=== PATIENT | male | born 1950 | race Caucasian/White ===

== ENCOUNTER 2020-11-18 08:19 | Emergency (ER) | payer MEDICARE, OTHER ==
--- NOTE | 2020-11-18 08:56 | EDM.PDOC ---
ED HPI GENERAL MEDICAL PROBLEM - General Chief Complaint: Headache Stated Complaint: PAIN LEFT SIDE OF HEAD / NECK Time Seen by Provider: 11/18/20 08:56 Source of Information: Reports: Patient, Family (), RN, RN Notes Reviewed History Limitations: Reports: No Limitations - History of Present Illness INITIAL COMMENTS - FREE TEXT/NARRATIVE: Pt presents to ER from home by POV with c/o severe left occipital headache and upper neck pain. Pt states that about one month ago he had gradual onset of a right occipital headache and upper neck pain without injury or any known cause. The neck pain and Rt headache was constant and moderate for a month, then this morning he woke with severe left occipital and upper neck pain, and felt unable to turn his head left of right. He can move his head up and down without nuchal rigidity. Admits to nausea from the pain, and today for the first time, the light bothers his eye slightly. Denies radiating pain, numbness, or tingling to the arms or hands. Pt rates the pain 10/10. Nothing alleviates the pain. He has taken Tylenol without relief. Movement of the head/neck aggravates the pain. Duration: Constant Location: Reports: Head, Neck Quality: Reports: Ache, Sharp, Other Severity: Severe Associated Symptoms: Reports: No Other Symptoms - Related Data Allergies Allergy/AdvReac Type Severity Reaction Status Date / Time Penicillins Allergy Hives Verified 11/18/20 08:57 Home Meds: Home Meds Cyanocobalamin (Vitamin B-12) [Cyanocobalamin Injection] 1,000 mcg SUBCUT ASDIRECTED 11/18/20 [History] Furosemide 40 mg PO 11/18/20 [History] Losartan Potassium 100 mg PO 11/18/20 [History] Metoprolol Succinate [Toprol XL 100mg] 100 mg PO DAILY 11/18/20 [History] amLODIPine Besylate [Amlodipine Besylate] 10 mg PO 11/18/20 [History] atorvaSTATin [Lipitor] 10 mg PO 11/18/20 [History] Past Medical History Cardiovascular History: Reports: High Cholesterol, Hypertension Endocrine/Metabolic History: Reports: Obesity/BMI 30+ Social & Family History - Family History Family Medical History: No Pertinent Family History - Living Situation & Occupation Living situation: Reports: , with Spouse Occupation: Other ([employer]) ED ROS GENERAL - Review of Systems Review Of Systems: Comprehensive ROS is negative, except as noted in HPI. - Physical Exam Exam: See Below Exam Limited By: No Limitations General Appearance: Alert, No Apparent Distress, Obese, Other (Uncomfortable appearing) Eye Exam: Bilateral Eye: EOMI, Normal Inspection, PERRL Ears: Normal External Exam, Normal Canal, Hearing Grossly Normal, Normal TMs Nose: Normal Inspection, Normal Mucosa, No Blood Throat/Mouth: Normal Inspection, Normal Lips, Normal Teeth, Normal Gums, Normal Oropharynx, Normal Voice, No Airway Compromise Head Exam: Atraumatic, Normocephalic, Scalp Tenderness (Mildly tender at the left occipital scalp) Neck: Limited Range of Motion (Rotation left and right limited), Other (No nuchal rigidity). No: Carotid Bruit, Lymphadenopathy (L), Lymphadenopathy (R), Tender Lateral (Left superior), Tender Midline Respiratory/Chest: No Respiratory Distress, Lungs Clear, Chest Non-Tender Cardiovascular: Normal Peripheral Pulses, Regular Rate, Rhythm Neuro Exam (Abbreviated): Alert, Oriented, CN II-XII Intact, Normal Cognition, Normal Gait, No Motor/Sensory Deficits Back Exam: Normal Inspection, Full Range of Motion. No: Vertebral Tenderness Extremities: Normal Inspection, Normal Range of Motion, Non-Tender Psychiatric: Normal Affect, Normal Mood Skin Exam: Warm, Dry, Intact, Normal Color, No Rash Course - Vital Signs Last Recorded V/S: Last Vital Signs Temp 98.2 F 11/18/20 09:18 Pulse 67 11/18/20 09:18 Resp 12 11/18/20 09:18 BP 159/84 H 11/18/20 09:18 Pulse Ox 98 11/18/20 09:18 - Orders/Labs/Meds Orders: Active Orders 24 hr Category Date Time Status Peripheral IV Care [RC] . DIRECTED Care 11/18/20 09:02 Active Sodium Chloride 0.9% [Saline Flush] Med 11/18/20 09:02 Active 10 ml FLUSH ASDIRECTED PRN Peripheral IV Insertion Adult [OM.PC] Stat Oth 11/18/20 09:01 Ordered Medication Orders Sodium Chloride (Sodium Chloride 0.9% 10 Ml Syringe) 10 ml FLUSH ASDIRECTED PRN PRN Reason: Keep Vein Open Last Admin: 11/18/20 09:31 Dose: 10 ml Documented by: VICKIE Labs: Laboratory Tests 11/18/20 11/18/20 Range/Units 09:08 09:08 WBC 8.4 (5.0-10.0) 10^3/uL RBC 5.16 (4.6-6.2) 10^6/uL Hgb 15.5 (14.0-18.0) g/dL Hct 46.1 (40.0-54.0) % MCV 89.3 (80-100) fL MCH 30.0 (27.0-34.0) pg MCHC 33.6 (33.0-35.0) g/dL Plt Count 195 (150-450) 10^3/uL Neut % (Auto) 70.1 (42.2-75.2) % Lymph % (Auto) 21.2 (20.5-50.1) % Wise % (Auto) 6.9 (2-8) % Eos % (Auto) 1.3 (1.0-3.0) % Baso % (Auto) 0.5 (0.0-1.0) % Sodium 141 (136-145) mmol/L Potassium 3.5 (3.5-5.1) mmol/L Chloride 103 (98-107) mmol/L Carbon Dioxide 27 (21-32) mmol/L Anion Gap 14.5 H (7-13) mEq/L BUN 13 (7-18) mg/dL Creatinine 0.95 (0.70-1.30) mg/dL Est Cr Clr Drug Dosing TNP Estimated GFR (MDRD) > 60 BUN/Creatinine Ratio 13.7 (No establ ref range) Glucose 192 H (70-99) mg/dL Calcium 8.6 (8.5-10.1) mg/dL Total Bilirubin 0.7 (0.2-1.0) mg/dL AST 19 (15-37) U/L ALT 36 (16-63) U/L Alkaline Phosphatase 56 (46-116) U/L C-Reactive Protein 0.5 (0.0-0.9) mg/dL Total Protein 6.8 (6.4-8.2) g/dL Albumin 3.2 L (3.4-5.0) g/dL Globulin 3.6 Albumin/Globulin Ratio 0.89 Meds: Medications Generic Name Dose Route Start Last Admin Trade Name Freq PRN Reason Stop Dose Admin Sodium Chloride 10 ml 06/01/21 09:02 11/18/20 09:31 Sodium Chloride 0.9% 10 Ml Syringe FLUSH 10 ml ASDIRECTED PRN Administration Keep Vein Open Discontinued Medications Generic Name Dose Route Start Last Admin Trade Name Carmela PRN Reason Stop Dose Admin Hydromorphone HCl 1 mg 11/18/20 09:02 11/18/20 09:30 Hydromorphone 1 Mg/Ml Syringe IVPUSH 11/18/20 09:03 1 mg ONETIME ONE Administration Ondansetron HCl 4 mg 11/18/20 09:02 11/18/20 09:28 Ondansetron 4 Mg/2 Ml Sdv IV 11/18/20 09:03 4 mg ONETIME ONE Administration - Radiology Interpretation Free Text/Narrative:: [facility] Final Radiology Report with Addendum Call: [phone] assistance Online chat: [email or web address] Name: ADRIEN ROLON Age: 70Years M Date: 11/18/2020 SSN: -- : [id number] Study: CT HEAD WO CONT Requesting Physician: TERA LANDEROS Images: 155 Addl Studies: Provided Clinical History: severe upper neck pain, occipital headache Contrast: Without Contrast Medium: Contrast Amount: Contrast Method: Page 1 of 2 Addendum created by Abdon Nath MD on 11/18/2020 9:33 AM Central Time ([place] & [place]): Correction: The impression should reflect that there is "mild nonobstructing LEFT maxillary sinus disease." Initial Report created on 11/18/2020 9:30 AM Central Time ([place] & [place]): PROCEDURE INFORMATION: Exam: CT Head Without Contrast Exam date and time: 11/18/2020 9:21 AM Age: 70 years old Clinical indication: Pain; Headache; Migraine; Aura effect not specified; Additional info: Severe upper neck pain, occipital headache TECHNIQUE: Imaging protocol: Computed tomography of the head without contrast. Radiation optimization: All CT scans at this facility use at least one of these dose optimization techniques: automated exposure control; mA and/or kV adjustment per patient size (includes targeted exams where dose is matched to clinical indication); or iterative reconstruction. COMPARISON: No relevant prior studies available. FINDINGS: Limitations: None. Brain: Symmetric bifrontal brain volume loss without focal encephalomalacia. There are no transcortical defects and no mass, intracranial hemorrhage or brain edema. Cerebral ventricles: Normal. Paranasal sinuses: Mild nonobstructing inferior left maxillary sinus mucosal thickening. No solid masses or fluid levels. Mastoid air cells: Normal. ADRIEN ROLON | Final Radiology Report CONFIDENTIALITY STATEMENT This report is intended only for use by the referring physician, and only in accordance with law. If you received this in error, call [phone]. Page 2 of 2 Vasculature: Mild bilateral carotid atherosclerosis. Bones/joints: Normal. Soft tissues: Unremarkable. IMPRESSION: 1. No acute intracranial abnormality or suspicious finding. 2. Incidental findings include atherosclerosis, nonspecific bifrontal brain volume loss without temporal brain volume loss, mild nonobstructing right maxillary sinus disease and mild carotid atherosclerosis. Thank you for allowing us to participate in the care of your patient. Dictated and Authenticated by: Abdon Nath MD 11/18/2020 9:30 AM Central Time ([place] & [place]) [facility] Final Radiology Report Call: [phone] assistance Online chat: [email or web address] Name: ADRIEN ROLON Age: 70Years M Date: 11/18/2020 SSN: -- : 1950 Study: CT CERVICAL SPINE WO CONT Requesting Physician: TERA LANDEROS Images: [id number] Addl Studies: Provided Clinical History: severe upper neck pain, occipital headache Contrast: Without Contrast Medium: Contrast Amount: Contrast Method: Page 1 of 2 PROCEDURE INFORMATION: Exam: CT Cervical Spine Without Contrast Exam date and time: 11/18/2020 9:21 AM Age: 70 years old Clinical indication: Neck pain; Additional info: Severe upper neck pain, occipital headache TECHNIQUE: Imaging protocol: Computed tomography images of the cervical spine without contrast. Radiation optimization: All CT scans at this facility use at least one of these dose optimization techniques: automated exposure control; mA and/or kV adjustment per patient size (includes targeted exams where dose is matched to clinical indication); or iterative reconstruction. COMPARISON: No relevant prior studies available. FINDINGS: Bones/joints: Straightened cervical alignment and with 2 mm anterior degenerative subluxations of C2 upon C3 and C3 upon C4. All bones are intact. There is diffuse disc space narrowing and anterior vertebral spurring which is greatest at C5/6, next most prominent at C4/5 and C6/7. Discs/Spinal canal/Neural foramina: C2/3: No stenosis. C3/4: Midline disc protrusion measuring about 3.5 mm AP and indenting the ventral thecal sac. The central canal diameter at this level is 12.5 mm. Mild right neural foramen narrowing secondary to disc space loss and uncovertebral spurring. C4/5: No disc protrusion or suspicious stenosis. C5/6: Broad-based posterior disc osteophyte complex with questionable midline disc extrusion spanning up to 9 mm tall. The AP dimension of the central canal is approximately 9 mm at this level. but measuring no more than 2 mm AP. Uncovertebral and facet spurring causes mild to moderate bilateral neural foramen narrowing. C6/7: No central stenosis or disc protrusion. Mild bilateral neural foramen narrowing. C7/T1: No disc protrusion or stenosis. PABLOLAKIA ADRIEN | Final Radiology Report CONFIDENTIALITY STATEMENT This report is intended only for use by the referring physician, and only in accordance with law. If you received this in error, call [phone]. Page 2 of 2 Epidural space: Normal. Prevertebral Space: Normal. Sinuses: Mild, nonobstructing left maxillary sinus mucosal thickening. No fluid level. Lymph nodes: No enlarged lymph nodes. Lungs: Lung apices are normal. Soft tissues: Scattered calcifications in the ligamentum nuchae. IMPRESSION: 1. No acute fracture. 2. Diffuse cervical spondylosis with small, probably chronic disc protrusions and central C3/4 and C5/6. 3. Central canal stenosis is greatest at C5/6, 9 mm AP. 4. Neural foramen narrowing is greatest at C5/6. Thank you for allowing us to participate in the care of your patient. Dictated and Authenticated by: Abdon Nath MD 11/18/2020 9:41 AM Central Time ([place] & [place]) Departure - Departure Time of Disposition: 09:45 Disposition: Home, Self-Care 01 Condition: Fair Clinical Impression: Occipital headache, Cervical spinal stenosis, Cervical disc disease, Spondylosis of cervical spine, Right maxillary sinusitis - Discharge Information *PRESCRIPTION DRUG MONITORING PROGRAM REVIEWED*: No *COPY OF PRESCRIPTION DRUG MONITORING REPORT IN PATIENT FELIX: No Instructions: Cervicogenic Headache, Spinal Stenosis Forms: ED Department Discharge Additional Instructions: Rx: Cyclobenzaprine 10mg *Do not drive or work while taking this medication. Rx: Diclofenac ER 75mg Follow up in clinic with your primary doctor for recheck, and consideration of referral to a spinal specialist. Sepsis Event Note (ED) - Focused Exam Vital Signs: Vital Signs Temp Pulse Resp BP Pulse Ox 11/18/20 09:18 98.2 F 67 12 159/84 H 98 - My Orders Last 24 Hours: My Active Orders 11/18/20 09:01 Peripheral IV Insertion Adult [OM.PC] Stat 11/18/20 09:02 Peripheral IV Care [RC] . DIRECTED Sodium Chloride 0.9% [Saline Flush] 10 ml FLUSH ASDIRECTED PRN - Assessment/Plan Last 24 Hours: My Active Orders 11/18/20 09:01 Peripheral IV Insertion Adult [OM.PC] Stat 11/18/20 09:02 Peripheral IV Care [RC] . DIRECTED Sodium Chloride 0.9% [Saline Flush] 10 ml FLUSH ASDIRECTED PRN
[2020-11-18] MEDS ORDERED: Ondansetron 4 MG/2 ML SDV IV ONE (09:02)
[2020-11-18] MEDS ORDERED: Sodium Chloride 0.9% 10 ML Syringe FLUSH PRN (09:02)
[2020-11-18] MEDS ORDERED: HYDROmorphone 1 MG/ML Syringe IVPUSH ONE (09:02)
--- NOTE | 2020-11-18 09:31 | CT ---
PROCEDURE INFORMATION: Exam: CT Head Without Contrast Exam date and time: 11/18/2020 9:21 AM Age: 70 years old Clinical indication: Pain; Headache; Migraine; Aura effect not specified; Additional info: Severe upper neck pain, occipital headache TECHNIQUE: Imaging protocol: Computed tomography of the head without contrast. Radiation optimization: All CT scans at this facility use at least one of these dose optimization techniques: automated exposure control; mA and/or kV adjustment per patient size (includes targeted exams where dose is matched to clinical indication); or iterative reconstruction. COMPARISON: No relevant prior studies available. FINDINGS: Limitations: None. Brain: Symmetric bifrontal brain volume loss without focal encephalomalacia. There are no transcortical defects and no mass, intracranial hemorrhage or brain edema. Cerebral ventricles: Normal. Paranasal sinuses: Mild nonobstructing inferior left maxillary sinus mucosal thickening. No solid masses or fluid levels. Mastoid air cells: Normal. Vasculature: Mild bilateral carotid atherosclerosis. Bones/joints: Normal. Soft tissues: Unremarkable. IMPRESSION: 1. No acute intracranial abnormality or suspicious finding. 2. Incidental findings include atherosclerosis, nonspecific bifrontal brain volume loss without temporal brain volume loss, mild nonobstructing right maxillary sinus disease and mild carotid atherosclerosis.
[2020-11-18 09:35] LABS: ANION GAP 14.5 mEq/L (7-13); CHLORIDE,CL 103 mmol/L (98-107); SODIUM,NA 141 mmol/L (136-145)
--- NOTE | 2020-11-18 09:41 | CT ---
PROCEDURE INFORMATION: Exam: CT Cervical Spine Without Contrast Exam date and time: 11/18/2020 9:21 AM Age: 70 years old Clinical indication: Neck pain; Additional info: Severe upper neck pain, occipital headache TECHNIQUE: Imaging protocol: Computed tomography images of the cervical spine without contrast. Radiation optimization: All CT scans at this facility use at least one of these dose optimization techniques: automated exposure control; mA and/or kV adjustment per patient size (includes targeted exams where dose is matched to clinical indication); or iterative reconstruction. COMPARISON: No relevant prior studies available. FINDINGS: Bones/joints: Straightened cervical alignment and with 2 mm anterior degenerative subluxations of C2 upon C3 and C3 upon C4. All bones are intact. There is diffuse disc space narrowing and anterior vertebral spurring which is greatest at C5/6, next most prominent at C4/5 and C6/7. Discs/Spinal canal/Neural foramina: C2/3: No stenosis. C3/4: Midline disc protrusion measuring about 3.5 mm AP and indenting the ventral thecal sac. The central canal diameter at this level is 12.5 mm. Mild right neural foramen narrowing secondary to disc space loss and uncovertebral spurring. C4/5: No disc protrusion or suspicious stenosis. C5/6: Broad-based posterior disc osteophyte complex with questionable midline disc extrusion spanning up to 9 mm tall. The AP dimension of the central canal is approximately 9 mm at this level. but measuring no more than 2 mm AP. Uncovertebral and facet spurring causes mild to moderate bilateral neural foramen narrowing. C6/7: No central stenosis or disc protrusion. Mild bilateral neural foramen narrowing. C7/T1: No disc protrusion or stenosis. Epidural space: Normal. Prevertebral Space: Normal. Sinuses: Mild, nonobstructing left maxillary sinus mucosal thickening. No fluid level. Lymph nodes: No enlarged lymph nodes. Lungs: Lung apices are normal. Soft tissues: Scattered calcifications in the ligamentum nuchae. IMPRESSION: 1. No acute fracture. 2. Diffuse cervical spondylosis with small, probably chronic disc protrusions and central C3/4 and C5/6. 3. Central canal stenosis is greatest at C5/6, 9 mm AP. 4. Neural foramen narrowing is greatest at C5/6.
== END 2020-11-18 10:11 | disposition home or self-care (01) ==
LOC: DL.ED 08:19
DX: M47.812 Spondylosis without myelopathy or radiculopathy, cervical region (principal); M48.02 Spinal stenosis, cervical region; R51.9 Headache, unspecified; E78.00 Pure hypercholesterolemia, unspecified; I10 Essential (primary) hypertension; E66.9 Obesity, unspecified; Z88.0 Allergy status to penicillin; Z79.899 Other long term (current) drug therapy
CPT/HCPCS: 36415; 70450; 72125; 80053; 85025; 86140; 96374; 96375; 99284; 99284-25; J1170; J2405

== ENCOUNTER 2023-01-24 09:08 | Inpatient (IN) | payer MEDICARE, OTHER ==
[2023-01-24] MEDS ORDERED: Furosemide 100 MG/10 ML SDV IVPUSH ONE (09:25)
[2023-01-24] MEDS: Sodium Chloride 0.9% 10 ML Syringe FLUSH PRN (09:31)
[2023-01-24 09:32] LABS: BASOPHILS PERCENT AUTO 0.3 % (0.0-1.0); HEMATOCRIT 38.5 % (40.0-54.0); HEMOGLOBIN 12.8 g/dL (14.0-18.0); LYMPHOCYTES PERCENT AUTO 10.3 % (20.5-50.1); MEAN CORPUSCULAR HEMOGLOBIN 28.6 pg (27.0-34.0); MEAN CORPUSCULAR HGB CONC 33.2 g/dL (33.0-35.0); MEAN CORPUSCULAR VOLUME 85.9 fL (80-100); MONOCYTES PERCENT AUTO 8.6 % (2-8); NEUTROPHILS PERCENT AUTO 80.8 % (42.2-75.2); PLATELET COUNT,PLT 224 10^3/uL (150-450); RED BLOOD CELL COUNT 4.48 10^6/uL (4.6-6.2)
[2023-01-24 09:52] LABS: B-TYPE NATRIURETIC PEPTIDE,BNP 697 pg/ml (0-100)
[2023-01-24] MEDS ORDERED: Azithromycin 500 MG in Sodium Chloride 0.9% 250 ML IV ONE (09:55)
[2023-01-24] MEDS ORDERED: cefTRIAXone 2 GM Vial IVPUSH ONE (09:55)
[2023-01-24 09:57] LABS: A/G RATIO 0.8; ALANINE AMINOTRANSFERASE,ALT 19 U/L (16-63); ALBUMIN 3.4 g/dL (3.4-5.0); ALKALINE PHOSPHATASE 63 U/L (46-116); ANION GAP 17.3 mEq/L (7-13); ASPARTATE AMNIOTRANSFERASE,AST 14 U/L (15-37); BILIRUBIN TOTAL 1.9 mg/dL (0.2-1.0); BLOOD UREA NITROGEN,BUN 17 mg/dL (7-18); CALCIUM 9.1 mg/dL (8.5-10.1); CARBON DIOXIDE,CO2 23 mmol/L (21-32); CHLORIDE,CL 103 mmol/L (98-107); CREATININE 1.13 mg/dL (0.70-1.30); EST CRCL DRUG DOSING (CG) 73.61 mL/min; GLUCOSE RANDOM 159 mg/dL (70-99); POTASSIUM,K 3.3 mmol/L (3.5-5.1); PROTEIN TOTAL,TP 7.6 g/dL (6.4-8.2); SODIUM,NA 140 mmol/L (136-145)
[2023-01-24 09:59] LABS: LACTIC ACID 2.3 mmol/L (0.4-2.0)
[2023-01-24 10:00] LABS: ESTIMATED GFR 69 mL/min (>=60)
[2023-01-24 10:05] LABS: APPEARANCE,URINE CLEAR (CLEAR); BILIRUBIN,URINE NEGATIVE (NEGATIVE); COLOR,URINE YELLOW (YELLOW); GLUCOSE,URINE NEGATIVE (NEGATIVE); KETONES,URINE NEGATIVE (NEGATIVE); LEUKOCYTE ESTERASE,URINE NEGATIVE (NEGATIVE); NITRITE,URINE NEGATIVE (NEGATIVE); OCCULT BLOOD,URINE SMALL (NEGATIVE); PROTEIN,URINE 100 (NEGATIVE); UROBILINOGEN,URINE 0.2 mg/dL (0.2-1.0)
[2023-01-24] MEDS ORDERED: Potassium Chloride 10% 20 MEQ/15 ML Soln 15 ML UD Cup ONE (10:13)
[2023-01-24] MEDS: Potassium Chloride 10% 20 MEQ/15 ML Soln 15 ML UD Cup PO ONE (10:14)
[2023-01-24 10:16] LABS: BACTERIA,URINE RARE /HPF (0-FEW/HPF); EPITHELIAL CELLS,URINE RARE /HPF (NOT SEEN); HYALINE CASTS,URINE RARE; RBC,URINE 0-5 /HPF (0-5); WBC,URINE 0-5 /HPF (0-5/HPF)
[2023-01-24] MEDS ORDERED: Ondansetron 4 MG/2 ML SDV IVPUSH PRN (11:07)
[2023-01-24] MEDS ORDERED: Morphine 2 MG/ML SYRINGE IVPUSH PRN (11:07)
[2023-01-24] MEDS ORDERED: Albuterol/Ipratropium 3.0-0.5 MG/3 ML Neb Soln NEB PRN (11:07)
[2023-01-24] MEDS ORDERED: 50% Dextrose in Water 50 ML Syringe IVPUSH PRN (11:17)
[2023-01-24] MEDS ORDERED: Insulin Lispro 100 Units/ML 3 ML Vial SUBCUT ONE (11:17)
[2023-01-24] MEDS ORDERED: Glucagon,Human Recombinant 1 MG Vial IM PRN (11:17)
[2023-01-24] MEDS ORDERED: LORazepam 2 MG/ML SDV IVPUSH PRN (11:18)
[2023-01-24] MEDS ORDERED: Melatonin 3 MG Tab PO PRN ×2 (11:19→11:44)
[2023-01-24 11:36] LABS: INR 1.2 (0.9-1.2); PROTHROMBIN TIME 12.7 SEC (9.0-12.0)
[2023-01-24] MEDS ORDERED: Furosemide 20 MG Tab PO PRN (13:29)
[2023-01-24] MEDS: Apixaban 5 MG Tab PO SCH ×2 (15:28→20:27)
[2023-01-24] MEDS: atorvaSTATin 10 MG Tab PO SCH (15:29)
[2023-01-24] MEDS: Aspirin 81 MG Tab.EC PO SCH (16:20)
[2023-01-24] MEDS: amLODIPine 5 MG Tab PO SCH (16:20)
[2023-01-24] MEDS: Metoprolol Succinate 50 MG Tab.ER PO SCH (20:27)
[2023-01-24] MEDS: Acetaminophen 325 MG Tab PO PRN (20:27)
[2023-01-25 06:13] LABS: HEMOGLOBIN A1C 6.1 % (<5.7)
[2023-01-25 06:38] LABS: CHOLESTEROL HDL 47 mg/dL (40-59); CHOLESTEROL LDL CALCULATED 53 mg/dL (0-100); CHOLESTEROL TOTAL 108 mg/dL (0-199); TRIGLYCERIDES 42 mg/dL (0-149)
[2023-01-25] MEDS: Azithromycin 500 MG in Sodium Chloride 0.9% 250 ML IV SCH (08:41)
[2023-01-25] MEDS: Acetaminophen 325 MG Tab PO PRN ×3 (08:50→22:38)
[2023-01-25] MEDS: atorvaSTATin 10 MG Tab PO SCH (08:52)
[2023-01-25] MEDS: Ferrous Sulfate 325 MG Tab PO SCH (08:52)
[2023-01-25] MEDS: Apixaban 5 MG Tab PO SCH ×2 (08:52→20:21)
[2023-01-25] MEDS: Aspirin 81 MG Tab.EC PO SCH (08:52)
[2023-01-25] MEDS: amLODIPine 5 MG Tab PO SCH (08:53)
[2023-01-25] MEDS ORDERED: cefTRIAXone 2 GM Vial IVPUSH SCH ×2 (09:00)
[2023-01-25] MEDS ORDERED: Enoxaparin 40 MG/0.4 ML Syringe SUBCUT SCH ×2 (09:00)
[2023-01-25] MEDS ORDERED: Azithromycin 500 MG in Sodium Chloride 0.9% 250 ML IV SCH (09:00)
[2023-01-25] MEDS ORDERED: amLODIPine 5 MG Tab PO ONE (09:53)
[2023-01-25] MEDS: Potassium Chloride 10% 20 MEQ/15 ML Soln 15 ML UD Cup PO ONE (10:24)
[2023-01-25 10:33] LABS: MAGNESIUM 1.9 mg/dL (1.8-2.4)
[2023-01-25] MEDS: oxyCODONE 5 MG Tab PO PRN ×2 (16:54→23:28)
[2023-01-25] MEDS: hydrALAZINE 20 MG/ML SDV IVPUSH PRN ×2 (16:55→22:45)
[2023-01-25] MEDS: Metoprolol Succinate 50 MG Tab.ER PO SCH (20:20)
[2023-01-25] MEDS: Sodium Chloride 0.9% 10 ML Syringe FLUSH PRN ×3 (20:23→22:51)
[2023-01-26] MEDS: hydrALAZINE 20 MG/ML SDV IVPUSH PRN ×2 (04:35→20:00)
[2023-01-26] MEDS: oxyCODONE 5 MG Tab PO PRN ×2 (05:58→21:03)
[2023-01-26 06:23] LABS: BASOPHILS PERCENT AUTO 0.4 % (0.0-1.0); EOSINOPHILS PERCENT AUTO 0.7 % (1.0-3.0); HEMATOCRIT 41.6 % (40.0-54.0); LYMPHOCYTES PERCENT AUTO 12.8 % (20.5-50.1); MEAN CORPUSCULAR HEMOGLOBIN 27.4 pg (27.0-34.0); MEAN CORPUSCULAR HGB CONC 31.3 g/dL (33.0-35.0); MEAN CORPUSCULAR VOLUME 87.6 fL (80-100); MONOCYTES PERCENT AUTO 9.2 % (2-8); NEUTROPHILS PERCENT AUTO 76.9 % (42.2-75.2); PLATELET COUNT,PLT 261 10^3/uL (150-450); RED BLOOD CELL COUNT 4.75 10^6/uL (4.6-6.2); WHITE BLOOD CELL COUNT,WBC 13.5 10^3/uL (5.0-10.0)
[2023-01-26 06:44] LABS: ANION GAP 13.2 mEq/L (7-13); BILIRUBIN TOTAL 1.1 mg/dL (0.2-1.0); BUN/CREATININE RATIO 19.6 (No establ ref range); CALCIUM 9.4 mg/dL (8.5-10.1); CREATININE 1.07 mg/dL (0.70-1.30); EST CRCL DRUG DOSING (CG) 77.74 mL/min; POTASSIUM,K 3.2 mmol/L (3.5-5.1); PROTEIN TOTAL,TP 7.8 g/dL (6.4-8.2)
[2023-01-26 06:46] LABS: A/G RATIO 0.63
[2023-01-26] MEDS: Acetaminophen 325 MG Tab PO PRN ×3 (08:45→19:32)
[2023-01-26] MEDS: atorvaSTATin 10 MG Tab PO SCH (08:47)
[2023-01-26] MEDS: Ferrous Sulfate 325 MG Tab PO SCH (08:47)
[2023-01-26] MEDS: Aspirin 81 MG Tab.EC PO SCH (08:48)
[2023-01-26] MEDS: Apixaban 5 MG Tab PO SCH ×2 (08:49→20:58)
[2023-01-26] MEDS: amLODIPine 5 MG Tab PO SCH (08:49)
[2023-01-26] MEDS: Azithromycin 500 MG in Sodium Chloride 0.9% 250 ML IV SCH (08:51)
[2023-01-26] MEDS ORDERED: amLODIPine 5 MG Tab PO SCH (09:00)
[2023-01-26] MEDS: Potassium Chloride 10 MEQ Tab.ER PO SCH ×2 (09:05→13:53)
[2023-01-26] MEDS: Cefepime 2 GM Vial IVPUSH SCH ×2 (09:22→16:34)
[2023-01-26] MEDS: Losartan 50 MG Tab PO SCH (12:47)
[2023-01-26] MEDS: Furosemide 20 MG Tab PO SCH (12:53)
[2023-01-26] MEDS: Polyethylene Glycol 3350 Powder 17 GM Packet PO PRN (16:34)
[2023-01-26] MEDS: guaiFENesin/Dextromethorphan 100-10 MG/5 ML Soln 5 ML Cup PO PRN (19:32)
[2023-01-26] MEDS: traZODone 50 MG Tab PO SCH (20:57)
[2023-01-26] MEDS: Metoprolol Succinate 50 MG Tab.ER PO SCH (20:58)
[2023-01-26] MEDS: Benzonatate 100 MG Cap PO PRN (21:18)
[2023-01-27] MEDS: Sodium Chloride 0.9% 10 ML Syringe FLUSH PRN ×2 (01:01→21:00)
[2023-01-27] MEDS: Cefepime 2 GM Vial IVPUSH SCH ×3 (01:01→16:21)
[2023-01-27] MEDS: Acetaminophen 325 MG Tab PO PRN ×3 (03:18→17:32)
[2023-01-27] MEDS: guaiFENesin/Dextromethorphan 100-10 MG/5 ML Soln 5 ML Cup PO PRN ×2 (03:23→12:38)
[2023-01-27 05:53] LABS: BASOPHILS PERCENT AUTO 0.3 % (0.0-1.0); EOSINOPHILS PERCENT AUTO 1.3 % (1.0-3.0); HEMATOCRIT 36.4 % (40.0-54.0); HEMOGLOBIN 11.8 g/dL (14.0-18.0); MEAN CORPUSCULAR HEMOGLOBIN 28.4 pg (27.0-34.0); MEAN CORPUSCULAR HGB CONC 32.4 g/dL (33.0-35.0); MEAN CORPUSCULAR VOLUME 87.5 fL (80-100); MONOCYTES PERCENT AUTO 9.8 % (2-8); NEUTROPHILS PERCENT AUTO 78.6 % (42.2-75.2); PLATELET COUNT,PLT 218 10^3/uL (150-450); RED BLOOD CELL COUNT 4.16 10^6/uL (4.6-6.2); WHITE BLOOD CELL COUNT,WBC 10.1 10^3/uL (5.0-10.0)
[2023-01-27 07:27] LABS: ALBUMIN 2.6 g/dL (3.4-5.0); ANION GAP 12.4 mEq/L (7-13); BILIRUBIN TOTAL 1.2 mg/dL (0.2-1.0); BUN/CREATININE RATIO 24.8 (No establ ref range); CALCIUM 8.9 mg/dL (8.5-10.1); CREATININE 1.05 mg/dL (0.70-1.30); EST CRCL DRUG DOSING (CG) 79.22 mL/min; POTASSIUM,K 3.4 mmol/L (3.5-5.1)
[2023-01-27 07:28] LABS: A/G RATIO 0.59
[2023-01-27] MEDS: Losartan 50 MG Tab PO SCH (08:16)
[2023-01-27] MEDS: amLODIPine 5 MG Tab PO SCH (08:16)
[2023-01-27] MEDS: Apixaban 5 MG Tab PO SCH ×2 (08:17→20:33)
[2023-01-27] MEDS: Aspirin 81 MG Tab.EC PO SCH (08:17)
[2023-01-27] MEDS: atorvaSTATin 10 MG Tab PO SCH (08:17)
[2023-01-27] MEDS: Ferrous Sulfate 325 MG Tab PO SCH (08:17)
[2023-01-27] MEDS: Furosemide 20 MG Tab PO SCH (08:17)
[2023-01-27] MEDS: Azithromycin 500 MG in Sodium Chloride 0.9% 250 ML IV SCH (08:21)
[2023-01-27] MEDS: Potassium Chloride 10 MEQ Tab.ER PO SCH ×3 (08:43→16:22)
[2023-01-27] MEDS: oxyCODONE 5 MG Tab PO PRN (12:32)
[2023-01-27] MEDS: Benzonatate 100 MG Cap PO PRN ×2 (12:38→20:58)
[2023-01-27] MEDS ORDERED: amLODIPine 5 MG Tab PO ONE (13:39)
[2023-01-27] MEDS: Docusate Sodium 100 MG Cap PO PRN (15:58)
[2023-01-27] MEDS: Polyethylene Glycol 3350 Powder 17 GM Packet PO PRN (16:00)
[2023-01-27] MEDS: hydrALAZINE 20 MG/ML SDV IVPUSH PRN (17:29)
[2023-01-27] MEDS: traZODone 50 MG Tab PO SCH (20:33)
[2023-01-27] MEDS: Metoprolol Succinate 50 MG Tab.ER PO SCH (20:33)
[2023-01-28] MEDS: Cefepime 2 GM Vial IVPUSH SCH ×3 (01:03→16:52)
[2023-01-28] MEDS: Sodium Chloride 0.9% 10 ML Syringe FLUSH PRN ×2 (01:03→16:52)
[2023-01-28] MEDS: guaiFENesin/Dextromethorphan 100-10 MG/5 ML Soln 5 ML Cup PO PRN ×2 (02:17→23:42)
[2023-01-28] MEDS: Acetaminophen 325 MG Tab PO PRN ×3 (02:17→17:32)
[2023-01-28 06:18] LABS: BASOPHILS PERCENT AUTO 0.3 % (0.0-1.0); EOSINOPHILS PERCENT AUTO 1.5 % (1.0-3.0); HEMATOCRIT 35.7 % (40.0-54.0); HEMOGLOBIN 11.3 g/dL (14.0-18.0); LYMPHOCYTES PERCENT AUTO 12.9 % (20.5-50.1); MEAN CORPUSCULAR HEMOGLOBIN 27.6 pg (27.0-34.0); MEAN CORPUSCULAR HGB CONC 31.7 g/dL (33.0-35.0); MEAN CORPUSCULAR VOLUME 87.3 fL (80-100); MONOCYTES PERCENT AUTO 10.1 % (2-8); NEUTROPHILS PERCENT AUTO 75.2 % (42.2-75.2); PLATELET COUNT,PLT 263 10^3/uL (150-450); RED BLOOD CELL COUNT 4.09 10^6/uL (4.6-6.2); WHITE BLOOD CELL COUNT,WBC 9.2 10^3/uL (5.0-10.0)
[2023-01-28 06:41] LABS: ALBUMIN 2.4 g/dL (3.4-5.0); ANION GAP 13.7 mEq/L (7-13); BUN/CREATININE RATIO 26.2 (No establ ref range); CALCIUM 8.8 mg/dL (8.5-10.1); CREATININE 0.84 mg/dL (0.70-1.30); EST CRCL DRUG DOSING (CG) 99.03 mL/min; MAGNESIUM 2.1 mg/dL (1.8-2.4); POTASSIUM,K 3.7 mmol/L (3.5-5.1); PROTEIN TOTAL,TP 6.8 g/dL (6.4-8.2)
[2023-01-28 06:42] LABS: A/G RATIO 0.55
[2023-01-28] MEDS: Aspirin 81 MG Tab.EC PO SCH (08:55)
[2023-01-28] MEDS: Furosemide 20 MG Tab PO SCH (08:55)
[2023-01-28] MEDS: Apixaban 5 MG Tab PO SCH ×2 (08:55→20:26)
[2023-01-28] MEDS: Losartan 50 MG Tab PO SCH (08:55)
[2023-01-28] MEDS: Ferrous Sulfate 325 MG Tab PO SCH (08:56)
[2023-01-28] MEDS: atorvaSTATin 10 MG Tab PO SCH (08:56)
[2023-01-28] MEDS: hydrALAZINE 20 MG/ML SDV IVPUSH PRN ×3 (08:57→23:50)
[2023-01-28] MEDS: Benzonatate 100 MG Cap PO PRN ×2 (08:57→22:39)
[2023-01-28] MEDS ORDERED: amLODIPine 5 MG Tab PO SCH (09:00)
[2023-01-28] MEDS: Azithromycin 500 MG in Sodium Chloride 0.9% 250 ML IV SCH (09:08)
[2023-01-28] MEDS: Polyethylene Glycol 3350 Powder 17 GM Packet PO PRN (10:13)
[2023-01-28] MEDS: Docusate Sodium 100 MG Cap PO PRN (10:13)
[2023-01-28] MEDS: Insulin Lispro 100 Units/ML 3 ML Vial SUBCUT SCH ×2 (12:06→16:27)
[2023-01-28] MEDS: Acetaminophen/Butalbital/Caffeine 325-50-40 MG Tab PO PRN (19:41)
[2023-01-28] MEDS: traZODone 50 MG Tab PO SCH (20:26)
[2023-01-29] MEDS: oxyCODONE 5 MG Tab PO PRN (00:26)
[2023-01-29] MEDS: Cefepime 2 GM Vial IVPUSH SCH (00:27)
[2023-01-29] MEDS: Sodium Chloride 0.9% 10 ML Syringe FLUSH PRN (00:27)
[2023-01-29 06:10] LABS: BASOPHILS PERCENT AUTO 0.5 % (0.0-1.0); EOSINOPHILS PERCENT AUTO 2.3 % (1.0-3.0); HEMATOCRIT 35.4 % (40.0-54.0); HEMOGLOBIN 11.2 g/dL (14.0-18.0); LYMPHOCYTES PERCENT AUTO 15.5 % (20.5-50.1); MEAN CORPUSCULAR HEMOGLOBIN 27.5 pg (27.0-34.0); MEAN CORPUSCULAR HGB CONC 31.6 g/dL (33.0-35.0); MEAN CORPUSCULAR VOLUME 86.8 fL (80-100); MONOCYTES PERCENT AUTO 11.7 % (2-8); PLATELET COUNT,PLT 297 10^3/uL (150-450); RED BLOOD CELL COUNT 4.08 10^6/uL (4.6-6.2); WHITE BLOOD CELL COUNT,WBC 9.6 10^3/uL (5.0-10.0)
[2023-01-29 06:21] LABS: A/G RATIO 0.56; ALBUMIN 2.4 g/dL (3.4-5.0); ANION GAP 13.5 mEq/L (7-13); BUN/CREATININE RATIO 22.6 (No establ ref range); CALCIUM 8.9 mg/dL (8.5-10.1); CREATININE 0.84 mg/dL (0.70-1.30); EST CRCL DRUG DOSING (CG) 99.03 mL/min; POTASSIUM,K 3.5 mmol/L (3.5-5.1); PROTEIN TOTAL,TP 6.7 g/dL (6.4-8.2)
[2023-01-29] MEDS: Benzonatate 100 MG Cap PO PRN (06:28)
[2023-01-29] MEDS: Acetaminophen/Butalbital/Caffeine 325-50-40 MG Tab PO PRN (06:32)
[2023-01-29] MEDS ORDERED: Losartan 50 MG Tab PO SCH (07:00)
[2023-01-29] MEDS ORDERED: Metoprolol Succinate 50 MG Tab.ER PO SCH ×2 (07:00)
[2023-01-29] MEDS ORDERED: Furosemide 20 MG Tab PO SCH (09:00)
[2023-01-29] MEDS ORDERED: amLODIPine 5 MG Tab PO SCH (15:00)
[2023-02-06] MEDS ORDERED: Cyanocobalamin (Vitamin B12) 1,000 MCG/ML SDV SUBCUT SCH (08:00)
== END 2023-01-29 10:54 | disposition home or self-care (01) | DRG 193 ==
LOC: DL.ED 09:08 → DL.MS 11:07 → UNDOADMIN 11:08 → DL.ED 11:21
PROVIDERS: ADMIT Internal Medicine; ATTEND Internal Medicine
DX: J18.9 Pneumonia, unspecified organism (principal); I50.33 Acute on chronic diastolic (congestive) heart failure; J96.01 Acute respiratory failure with hypoxia; J15.6 Pneumonia due to other Gram-negative bacteria; I11.0 Hypertensive heart disease with heart failure; Z20.822 Contact with and (suspected) exposure to COVID-19; I48.91 Unspecified atrial fibrillation; E11.9 Type 2 diabetes mellitus without complications; I25.10 Atherosclerotic heart disease of native coronary artery without angina pectoris; E78.00 Pure hypercholesterolemia, unspecified; M19.90 Unspecified osteoarthritis, unspecified site; E66.9 Obesity, unspecified; I71.21 Aneurysm of the ascending aorta, without rupture; I27.20 Pulmonary hypertension, unspecified; E87.6 Hypokalemia; I16.0 Hypertensive urgency; G47.33 Obstructive sleep apnea (adult) (pediatric); E88.09 Other disorders of plasma-protein metabolism, not elsewhere classified; D50.9 Iron deficiency anemia, unspecified; I25.2 Old myocardial infarction; Z88.0 Allergy status to penicillin; Z68.38 Body mass index [BMI] 38.0-38.9, adult; Z79.82 Long term (current) use of aspirin; Z79.01 Long term (current) use of anticoagulants; Z79.84 Long term (current) use of oral hypoglycemic drugs; Z79.899 Other long term (current) drug therapy; Z95.1 Presence of aortocoronary bypass graft
CPT/HCPCS: 36415; 71046; 71250; 80053; 80061; 81001; 82947; 83036; 83605; 83735; 83880; 84145; 84484; 85025; 85610; 86140; 87040; 87070; 87205; 87641; 87804; 93005; 93010; 94010; 94060; 94640; 94667; 94668; 94760; 96365; 96375; 97161-GP; 97165-GO; 97530-GP; 99223; 99233; 99238; 99285; 99285-25; A9270-GY; J0360; J0456; J0692; J0696; J1815-GY; J1940; J2270; J3490; J7050; J7620-GY; U0002